=== PATIENT | male | born 1965 | race Caucasian/White ===

== ENCOUNTER → 2016-10-30 13:36 | Outpatient (CLI) | payer MEDICAID ==
--- NOTE | 2016-11-09 07:17 | EEG ---
PATIENT:CARMITA BONILLA DATE OF SERVICE: 10/30/16 MEDICAL RECORD: [id number] DATE OF : 65 LOCATION: [facility] ADMISSION DATE: 10/30/16 REFERRING PHYSICIAN: INTERPRETING PHYSICIAN: GERHARD ALEXANDER MD DATE OF SERVICE: 10/30/2016 Electroencephalographic Report Referred as an outpatient by myself. ELECTROENCEPHALOGRAM NUMBER: [id number] DATE OF EXAMINATION: 10/30/2016 at 3:00 p.m. TECHNICAL DATA: This electroencephalographic recording consists of approximately 20 minutes of data collection utilizing the international 10/20 system of electrode placement and both referential and non-referential montages. Sixteen channels of electrocerebral recording are accompanied by a 17th channel dedicated to the electrocardiographic rhythm and 2 channels of electromyographic recording. Recording is performed entirely in the sleeping state utilizing activation by photic stimulation. ELECTROENCEPHALOGRAPHIC DATA: The entirety of the recorded electrocerebral activity is performed in the sleeping state. A 15 Hz sleep spindles and occasional sharp vertex waves are seen throughout the recording. There is some generalized irregular and symmetric delta slowing in the range of 1-2 Hz seen intermittently during recording. In the last 10% of the recording, brief effort is made to attempt to arouse the patient. It does not appear that he arouses into full wakefulness and immediately falls back asleep. A few short runs of posterior dominant background are observed at 5-6 Hz, but it does not appear that the patient is fully aroused. No focal slowing is identified. No epileptiform discharges are seen. Photic stimulation induces no abnormal change in the recorded electrocerebral activity. INTERPRETATION: Normal (asleep). This is a normal sleeping electroencephalographic recording. TRANSINT:[id number] Voice Confirmation ID: [id number] DOCUMENT ID: [id number] ELECTROENCEPHALOGRAM REPORT [id number] CARMITA BONILLA GERHARD ALEXANDER MD at 0717 CC: [id number] DICTATION DATE: 10/31/16826 NEWSPAPER COLUMNIST: 10/31/1652 DEP CLI 10/30/16 [id number] [place] [address]
== END | disposition home or self-care (01) ==
LOC: D.CN 10:00 → D.MRI 11:00 → D.CN 13:00
DX: G93.41 Metabolic encephalopathy (principal)